=== PATIENT | female | born 1955 | race Caucasian/White ===

== ENCOUNTER → 2021-05-03 | Outpatient (CLI) | payer OTHER ==
[~2021-05-03] MED LIST: ASPI325T; CELE100C; KLON0.5T; LEVO100T7; PAXI40TA; PAXIL; TRAZ50TA; XANA1TAB2; ZOCO20TA
--- NOTE | 2021-05-03 11:33 | REPMRS ---
Patient History The patient states she had a clinical breast exam in Sep 2020. Patient is postmenopausal. Family history of breast cancer at age 50 or over in mother, endometrial cancer at age 50 or over in maternal grandmother. Patient states no breast complaints today. Patient has signed MRS History Sheet. Digital Woman Screen Mammo: May 03, 2021 - Exam #: [id number] Bilateral CC and MLO view(s) were taken. Technologist: Carol Jimenez, Technologist Prior study comparison: April 14, 2017, bilateral digital mammo screening bilat, performed at [facility]. June 11, 2015, bilateral digital mammo screening bilat, performed at [facility]. FINDINGS: There are scattered fibroglandular densities. Screening. Digital screening (2D) mammography was performed bilaterally in the CC and MLO projections. Additionally, breast tomosynthesis (3D mammography) was performed bilaterally in the CC and MLO projections. Todays exam was compared to the prior exam/exams.There are no prior DBT images for comparison. By history, the patient has no complaints of a palpable breast abnormality or other significant breast complaints. The breasts are unchanged in size and shape. There are no mely-soft tissue densities or spiculated masses. There is no internal architectural distortion.Once again, stable benign appearing calcifications are seen. There are no suspicious mely-calcific clusters. Skin thickening or nipple retraction is not present. IMPRESSION: BI-RADS Category 2- Benign Findings. There is no evidence of malignant alteration of the breasts. Followup examination recommended in one year. The Volpara volumetric breast density category is B, there are scattered areas of fibroglandular densities. This mammogram was read with the assistance [facility],an FDA approved computer aided detection system for mammography. The lifetime Tyrer-Cuzick score is 14.8 % Negative x-ray reports should not delay surgical consultation if a dominant or clinically suspicious mass is present. Not all breast cancers can be identified by mammography. Therefore, we recommend that you continue to perform regular breast self-examination and physical examination and then promptly contact your physician of any concerns or changes. Adenosis and dense breasts may obscure an underlying neoplasm. Assessment: BI-RADS/ACR category 2 mammogram. Benign Findings. Recommendation Routine screening mammogram of both breasts in 1 year. Electronically Signed By: Joseph Goodson DO 05/03/21 1134
--- NOTE | 2021-05-03 11:47 | REP ---
INDICATION: BOB DENSE BREASTS. COMPARISON: Comparison mammography May 03, 2021.. TECHNIQUE: Bilateral whole breast sonography screening study. FINDINGS: Slightly heterogeneous fibroglandular background echotexture is seen bilaterally. No cyst, mass, suspicious acoustic shadowing or architectural distortion is seen. No suspicious sonographic finding. IMPRESSION: BI-RADS category 1-findings. <Electronically signed by Lemuel Terry > 05/03/21 1149
== END ==
LOC: M WHC 10:29
PROVIDERS: ATTEND Nurse Practitioner Family
DX: Z12.31 Encounter for screening mammogram for malignant neoplasm of breast (principal)

== ENCOUNTER → 2023-08-15 | Outpatient (CLI) | payer BC, MEDICARE, OTHER | LOC: M RAD 09:04 | PROVIDERS: ATTEND Nurse Practitioner Family | DX: Z87.891 Personal history of nicotine dependence (principal) ==

== ENCOUNTER → 2023-09-20 | Outpatient (CLI) | payer MEDICARE, OTHER | LOC: M WHC 07:10 | PROVIDERS: ATTEND Nurse Practitioner Family | DX: Z12.31 Encounter for screening mammogram for malignant neoplasm of breast (principal) ==

== ENCOUNTER 2023-10-19 07:35 | Day surgery (SDC) | payer MEDICARE, OTHER ==
[~2023-10-19] VITALS: Ht 162.6 cm; Wt 81.6 kg
[~2023-10-19 07:35] MED LIST changes: +LEVO137T2 PO; +LISI20TA33 PO; +NS 1,000 ML IV ONE; +SIMV20TA22 PO
[2023-10-19] MEDS ORDERED: propofoL 200 MG/20 ML VIAL As Ordered ONE (08:24)
[2023-10-19 09:45] VITALS: BP 136/74; TEMP 96.6; O2SAT 99
== END 2023-10-19 09:55 | disposition home or self-care (01) ==
LOC: M OPP 07:35
PROVIDERS: ATTEND Internal Medicine Gastroenterology
DX: D12.6 Benign neoplasm of colon, unspecified (principal); K64.4 Residual hemorrhoidal skin tags; K64.8 Other hemorrhoids; R19.5 Other fecal abnormalities; Z86.010 Personal history of colon polyps; Z79.02 Long term (current) use of antithrombotics/antiplatelets; Z79.890 Hormone replacement therapy; Z79.899 Other long term (current) drug therapy

== ENCOUNTER → 2024-09-23 | Outpatient (CLI) | payer MEDICARE, OTHER ==
[~2024-09-23] MED LIST changes: -NS 1,000 ML IV ONE
== END ==
LOC: M WHC 10:11
PROVIDERS: ATTEND Nurse Practitioner Family
DX: Z12.31 Encounter for screening mammogram for malignant neoplasm of breast (principal)